=== PATIENT | male | born 1965 | race Caucasian/White ===

== ENCOUNTER 2019-12-10 11:15 | Emergency (ER) | payer OTHER ==
[~2019-12-10] VITALS: Ht 165.1 cm; Wt 84.8 kg
[2019-12-10 11:23] VITALS: Ht 165.1 cm; Wt 84.8 kg
[2019-12-10 15:26] VITALS: BP 207/108
== END 2019-12-10 15:34 | disposition home or self-care (01) ==
LOC: ED 11:15
DX: T15.12XA Foreign body in conjunctival sac, left eye, initial encounter (principal); W45.8XXA Other foreign body or object entering through skin, initial encounter; Y93.89 Activity, other specified; Y92.89 Other specified places as the place of occurrence of the external cause; Y99.8 Other external cause status
CPT/HCPCS: J7040; V2632

== ENCOUNTER 2020-09-12 15:11 | Emergency (ER) | payer OTHER ==
[~2020-09-12] VITALS: Ht 165.1 cm; Wt 85.7 kg
[2020-09-12 15:13] VITALS: Ht 165.1 cm; Wt 85.7 kg
[2020-09-12 16:48] LABS: microscopic required? NO
[2020-09-12 17:20] LABS: CALCIUM 8.5 mg/dL (8.5-10.1); CHLORIDE SERUM 101 mmol/L (98-107); CREATININE SERUM 0.8 mg/dL (0.7-1.3); GFR1 > 60 mL/min; GLUCOSE SERUM 105 mg/dL (74-106); POTASSIUM SERUM 3.3 mmol/L (3.5-5.1); SODIUM SERUM 136 mmol/L (136-145)
[2020-09-12 17:23] LABS: BASOPHIL % 0.5 % (0.2-1.5); PLATELET COUNT 144 x10^3mcL (152-348); RED CELL DISTRIBUTION WIDTH 13.9 % (12.1-16.2)
[2020-09-12 17:24] LABS: ALKALINE PHOSPHATASE 99 U/L (46-116); ALT/SGPT 28 U/L (16-63); AST/SGOT 20 U/L (15-37); BILIRUBIN TOTAL 0.3 mg/dL (0.20-1.00); HDL CHOLESTEROL 51 mg/dL (40-60); LIPASE 127 IU/L (73-393); TOTAL PROTEIN, SERUM 6.7 g/dL (6.4-8.2); TRIGLYCERIDES 166 mg/dL (<150)
[2020-09-12 17:26] LABS: ALBUMIN 3.2 g/dL (3.4-5.0); CHOLESTEROL 221 mg/dL (<200); CHOLESTEROL/HDL RATIO 4.3
[2020-09-12 17:29] LABS: UA SPECIFIC GRAVITY <=1.005 (1.005-1.035); urine erythrocyte NEGATIVE (NEGATIVE)
[2020-09-12 17:36] LABS: T3 TOTAL 1.13 ng/mL
[2020-09-12 17:44] LABS: AMPHETAMINE QUAL UR NONE DETECTED (See below)
[2020-09-12 17:44] LABS: FREE T4 0.93 ng/dL (0.76-1.46)
[2020-09-12] MEDS ORDERED: LISINOPRIL10 MG PO (18:18)
[2020-09-12 19:17] VITALS: BP 167/90
== END 2020-09-12 19:17 | disposition home or self-care (01) ==
LOC: ED 15:11
PROVIDERS: Specialist
DX: I16.0 Hypertensive urgency (principal); F17.200 Nicotine dependence, unspecified, uncomplicated; Z72.89 Other problems related to lifestyle
CPT/HCPCS: 83880; 84439; 99406; G0480; J3490; J7030